=== PATIENT | male | born 2000 | race Two or more races ===

== ENCOUNTER 2025-06-19 21:51 | Emergency (ER) | payer MEDICAID, SELFPAY ==
[2025-06-19 21:53] VITALS: BMI 25.8
[2025-06-19 22:00] VITALS: BP 135/90; PULSE 65; RESP 16; TEMP 36.7; O2SAT 97
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
== END 2025-06-19 22:17 | disposition home or self-care (01) ==
LOC: SERX 22:20
PROVIDERS: Emergency Provider Emergency Medicine
DX: R20.0 Anesthesia of skin (principal)
CPT/HCPCS: 99281